=== PATIENT | male | born 1995 | race Caucasian/White ===

== ENCOUNTER 2016-12-12 20:24 | Emergency (ER) | payer OTHER ==
[~2016-12-12] VITALS: Ht 182.9 cm; Wt 83.9 kg
[2016-12-12] MEDS ORDERED: NORCO 5/325MG TABLET (BULK FOR ED) PO ONE (23:45)
[2016-12-12] MEDS ORDERED: IBUPROFEN 600 MG TAB PO ONE (23:45)
[2016-12-12 23:51] VITALS: BP 129/78
--- NOTE | 2016-12-13 08:24 | REP ---
Clinical: Trauma. Technique: AP, lateral, bilateral oblique views of the right ankle. Findings: Significant soft tissue swelling is appreciated. Ankle mortise appears intact. While there is no definite acute fracture, subtle bony fragment along the lateral aspect of the midfoot on the AP radiograph may reflect sequelae of avulsion injury. Impression: 1. Significant soft tissue swelling. 2. No definite acute fracture. 3. Subtle avulsion injury along the lateral midfoot within the extensive swelling and identified on AP radiograph only cannot be excluded. Signed by Woody Davila MD 12/13/2016 08:16 A
--- NOTE | 2016-12-14 11:38 | ED PDOC ---
Post-Departure Follow-Up certified letter sent to pt re formal read of right ankle. pt needs follow up! Pillo Palacios MD Dec 14, 2016 11:38
== END 2016-12-13 00:06 | disposition home or self-care (01) ==
LOC: M ED 21:46
DX: S93.401A Sprain of unspecified ligament of right ankle, initial encounter (principal); X58.XXXA Exposure to other specified factors, initial encounter; Y92.39 Other specified sports and athletic area as the place of occurrence of the external cause; Y93.67 Activity, basketball; Y99.8 Other external cause status